=== PATIENT | male | born 1935 ===

== ENCOUNTER 2018-04-10 11:44 | Day surgery (SDC) | payer MEDICARE ==
[~2018-04-10] VITALS: Ht 170.2 cm; Wt 64.4 kg
[~2018-04-10 11:44] MED LIST: AREDS FORMULA PO; ATOR10 PO; Aspir 8181 MG PO; CHOL10002 PO; FINA5 PO; Glucosamine &1 EACH PO; LOSA25 PO; MULTI VITAMIN1 EACH PO; ROSU5 PO; TAMS.4ER PO
--- NOTE | 2018-04-10 12:38 | NUR ---
04/10/18 1238 Uriel Barth 1ST IV ATTEMPT IN RH UNSUCCESSFUL, ORSC.BDK 2ND IV ATTEMPT IN RAC UNSUCCESSFUL, ORSC.BDK 3RD IV ATTEMPT IN RFA SUCCESSFUL, ORSC.KG
== END 2018-04-10 14:14 | disposition home or self-care (01) ==
LOC: ORSCSDS 11:44
PROVIDERS: Internal Medicine Gastroenterology
PROC: 0DBM8ZX Excision of Descending Colon, Via Natural or Artificial Opening Endoscopic, Diagnostic (ICD-10-PCS; principal; 2018-04-10 13:00)
DX: Z12.11 Encounter for screening for malignant neoplasm of colon (principal); D12.4 Benign neoplasm of descending colon; K57.30 Diverticulosis of large intestine without perforation or abscess without bleeding; I10 Essential (primary) hypertension; Z79.82 Long term (current) use of aspirin; Z79.899 Other long term (current) drug therapy
CPT/HCPCS: 88305; J7120

== ENCOUNTER → 2018-07-31 | Outpatient (CLI) | payer MEDICARE | END | disposition home or self-care (01) | LOC: LAB SHORT 10:00 → PLD 10:00 | DX: D48.5 Neoplasm of uncertain behavior of skin (principal) | CPT/HCPCS: 88305 ==

== ENCOUNTER → 2020-01-29 | Outpatient (CLI) | payer MEDICARE | END | disposition home or self-care (01) | LOC: LAB SHORT 14:05 → PLD 14:05 | DX: D48.5 Neoplasm of uncertain behavior of skin (principal) | CPT/HCPCS: 88305 ==

== ENCOUNTER 2020-09-03 06:54 | Day surgery (SDC) | payer MEDICARE ==
[~2020-09-03] VITALS: Ht 172.7 cm; Wt 66.2 kg
[2020-09-03] MEDS ORDERED: TERB250 PO (07:26)
--- NOTE | 2020-09-03 07:29 | NUR ---
09/03/20 0729 YESICA PEREZ TETRACAINE DROP IN AT 0720. EYE BLEDGETT INSERTED AT 0721.
== END 2020-09-03 08:55 | disposition home or self-care (01) ==
LOC: ORSCSDS 06:54
PROVIDERS: Ophthalmology
PROC: 08RK3JZ Replacement of Left Lens with Synthetic Substitute, Percutaneous Approach (ICD-10-PCS; principal; 2020-09-03 08:00)
DX: H25.12 Age-related nuclear cataract, left eye (principal); H21.81 Floppy iris syndrome; I10 Essential (primary) hypertension; E78.00 Pure hypercholesterolemia, unspecified; Z79.82 Long term (current) use of aspirin; Z79.899 Other long term (current) drug therapy
CPT/HCPCS: J2001; J2250; J3010; J3301; J7040; V2632

== ENCOUNTER 2020-09-24 07:54 | Day surgery (SDC) | payer MEDICARE ==
[~2020-09-24] VITALS: Ht 172.7 cm; Wt 64.8 kg
[~2020-09-24 07:54] MED LIST changes: +TERB250 PO
--- NOTE | 2020-09-24 08:26 | NUR ---
09/24/20 0826 Rabia Couch 0822 TETRACAINE DROP IN RIGHT EYE BY [facility].CB
== END 2020-09-24 10:04 | disposition home or self-care (01) ==
LOC: ORSCSDS 07:54
PROVIDERS: Ophthalmology
PROC: 08RJ3JZ Replacement of Right Lens with Synthetic Substitute, Percutaneous Approach (ICD-10-PCS; principal; 2020-09-24 09:00)
DX: H25.11 Age-related nuclear cataract, right eye (principal); I10 Essential (primary) hypertension; Z79.899 Other long term (current) drug therapy
CPT/HCPCS: J2001; J2250; J3010; J3301; J7040; V2632

== ENCOUNTER 2020-11-18 21:22 | Emergency (ER) | payer OTHER, MEDICARE ==
[~2020-11-18] VITALS: Ht 172.7 cm; Wt 63.5 kg
== END 2020-11-19 01:02 | disposition home or self-care (01) ==
LOC: ER 21:22
DX: S01.81XA Laceration without foreign body of other part of head, initial encounter (principal); S61.411A Laceration without foreign body of right hand, initial encounter; S00.31XA Abrasion of nose, initial encounter; S00.81XA Abrasion of other part of head, initial encounter; S40.812A Abrasion of left upper arm, initial encounter; S40.811A Abrasion of right upper arm, initial encounter; I10 Essential (primary) hypertension; W54.8XXA Other contact with dog, initial encounter
CPT/HCPCS: 12001; 12011; 70450; 99283-25